=== PATIENT | female | born 1945 | race Caucasian/White ===

== ENCOUNTER 2016-12-26 13:27 | Emergency (ER) | payer MEDICARE, OTHER ==
[2016-12-26 14:35] VITALS: BP 149/81
--- NOTE | 2016-12-26 14:49 | UC ---
Skin Complaint HPI - HPI Summary HPI Summary: 71 YEAR OLD FEMALE PRESENTS WITH COMPLAINS OF WOUND ON LEFT GAITOR SECONDARY TO BLUNT TRAUMA. - History of Current Complaint Chief Complaint: [facility] Time Seen by Provider: 12/26/16 14:40 Stated Complaint: SKIN COMPLAINT - Allergy/Home Medications Allergies/Adverse Reactions: Allergies Allergy/AdvReac Type Severity Reaction Status Date / Time No Known Allergies Allergy Verified 12/26/16 14:35 Home Medications: Home Medications Ascorbic Acid TAB* [Vitamin C TAB*] 500 mg PO DAILY 12/26/16 [History Confirmed 12/26/16] Cholecalciferol [Vitamin D] 1,000 units PO DAILY 12/26/16 [History Confirmed ] Multiple Vitamins W/ Minerals [Multivitamin Adults 50+] 1 tab PO DAILY 12/26/16 [History Confirmed 12/26/16] Rosuvastatin Calcium [Crestor] 5 mg PO DAILY 12/26/16 [History Confirmed ] Review of Systems Constitutional: Negative Skin: Other - LEFT ANTERIOR BAUM WOUND Eyes: Negative ENT: Negative Respiratory: Negative Cardiovascular: Negative Gastrointestinal: Negative Genitourinary: Negative Motor: Negative Neurovascular: Negative Musculoskeletal: Negative Neurological: Negative Psychological: Negative All Other Systems Reviewed And Are Negative: Yes PMH/Surg Hx/FS Hx/Imm Hx - Surgical History Surgical History: Yes Surgery Procedure, Year, and Place: right knee repair. - Social History Alcohol Use: Daily Substance Use Type: None Smoking Status (MU): Never Smoked Tobacco Physical Exam Triage Information Reviewed: Yes Vital Signs: Initial Vital Signs Temp 37.7 C 12/26/16 14:27 Pulse 72 12/26/16 14:27 Resp 18 12/26/16 14:27 BP 149/81 12/26/16 14:27 Pulse Ox 100 12/26/16 14:27 Eye Exam: Normal ENT Exam: Normal Dental Exam: Normal Neck exam: Normal Neck: Positive: 1 Respiratory Exam: Normal Cardiovascular Exam: Normal Abdominal Exam: Normal Musculoskeletal Exam: Normal Neurological Exam: Normal Psychological Exam: Normal Skin Exam: Normal Skin: Positive: Other - LEFT ANTERIOR BAUM WOUND Course/Dx - Diagnoses Provider Diagnoses: LEFT ANTERIOR GAITOR WOUND Discharge - Discharge Plan Condition: Stable Disposition: HOME Prescriptions: Mupirocin 2% OINT* [Bactroban 2 % Oint*] 1 applic TOPICAL BID #1 tube Sulfamethox/Trimethoprim DS* [Bactrim DS 800/160 TAB*] 1 tab PO BID #14 tab Patient Education Materials: Puncture Wound (ED), Wound Infection (ED) Referrals: Srinivas Lott MD [Medical Doctor] - If Needed Additional Instructions: [facility]
== END 2016-12-26 15:18 | disposition home or self-care (01) ==
LOC: UCEAST 13:27
DX: S81.812A Laceration without foreign body, left lower leg, initial encounter (principal); X58.XXXA Exposure to other specified factors, initial encounter; Y93.9 Activity, unspecified; Y92.9 Unspecified place or not applicable; Y99.9 Unspecified external cause status
CPT/HCPCS: 87070; 87205; 99202; G0463